=== PATIENT | male | born 2000 | race Caucasian/White ===

== ENCOUNTER 2019-05-18 22:41 | Emergency (ER) | payer BC ==
[2019-05-18 22:48] VITALS: RESP 18
--- NOTE | 2019-05-19 00:24 | ED ---
General Adult HPI - General Chief complaint: Shortness of Breath Stated complaint: ANIYAH Time Seen by Provider: 05/18/19 23:49 Source: patient Mode of arrival: ambulatory Limitations: no limitations - History of Present Illness Initial comments: Patient is a 18-year-old male presenting to the emergency department with a chief complaint of shortness of breath. Patient reports about 1.5 years ago he aspirated vomit after having drank. Patient reports ever since he has been complaining of intermittent breathing problems. Patient reports that he feels like there is "something in the left side of the chest." Patient reports he has been evaluated multiple times and had multiple CT scans that are unremarkable. Patient reports he went to his primary care who would not refer him to pulmonology. Patient reports he has developed increased shortness of breath over the past week. Patient reports in the past few days while he was at work he had a "burning sensation in his lungs". Patient reports it is very [employer] work. Patient reports he had multiple CTs performed at [facility] that were negative. Patient denies cough but does report nausea but no vomiting. Patient denies any night sweats fevers or chills. Patient denies hemoptysis. Patient denies chest pain. Patient does not have history of asthma. Patient reports he smokes about 2 cigarettes per week. - Related Data Home Medications Medication Instructions Recorded Confirmed Acetaminophen Tab [Tylenol Tab] 650 mg PO Q6H PRN 05/18/19 05/18/19 Ibuprofen [Motrin Ib] 400 mg PO Q6H PRN 05/18/19 05/18/19 Allergies Allergy/AdvReac Type Severity Reaction Status Date / Time amoxicillin Allergy Rash/Hives Verified 05/18/19 22:55 Review of Systems ROS Statement: Those systems with pertinent positive or pertinent negative responses have been documented in the HPI. ROS Other: All systems not noted in ROS Statement are negative. Past Medical History Past Medical History: No Reported History History of Any Multi-Drug Resistant Organisms: None Reported Past Surgical History: No Surgical Hx Reported, Cholecystectomy Additional Past Surgical History / Comment(s): right hand plates, Additional Past Anesthesia/Blood Transfusion Reaction / Comment(s): FIRTS ANESTHESIA Past Psychological History: ADD/ADHD Smoking Status: Current some day smoker Past Alcohol Use History: None Reported Past Drug Use History: None Reported General Exam Limitations: no limitations General appearance: alert, in no apparent distress Head exam: Present: atraumatic, normocephalic, normal inspection Eye exam: Present: normal appearance, PERRL, EOMI Pupils: Present: normal accommodation ENT exam: Present: normal exam, normal oropharynx, mucous membranes moist, TM's normal bilaterally, normal external ear exam Neck exam: Present: normal inspection, full ROM Respiratory exam: Present: normal lung sounds bilaterally. Absent: respiratory distress, wheezes, rales, rhonchi, stridor, chest wall tenderness, accessory muscle use, decreased breath sounds Cardiovascular Exam: Present: regular rate, normal rhythm, normal heart sounds Extremities exam: Present: normal inspection, full ROM Back exam: Present: normal inspection, full ROM Neurological exam: Present: alert, oriented X3 Psychiatric exam: Present: normal affect, normal mood Skin exam: Present: warm, intact, normal color Course Vital Signs 05/18/19 05/18/19 05/19/19 22:43 23:02 01:23 Temperature 99.1 F 98.8 F Pulse Rate 125 H 110 H Respiratory 18 18 18 Rate Blood Pressure 147/85 140/80 O2 Sat by Pulse 97 97 Oximetry Medical Decision Making - Medical Decision Making Patient is a 18-year-old male presenting to emergency Department with a chief complaint of shortness of breath. Patient had aspirated his vomit approximately 1.5 years ago and states that ever since he has developed breathing difficulties. Patient reports that he had multiple CTs performed at [facility] that were unremarkable. At this time patient feels like his chest is a "burning sensation" especially when he is at work. 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 His primary care would not give him a referral to [facility]. Physical examination with auscultation is unremarkable. Patient is only reporting pain with full inspiration and is otherwise not wh eezing. No increased work of breathing noted. Chest x-ray is unremarkable. I discussed with the patient that he would need to see a chiseler head for further workup. Patient has a red he had multiple CTs yielding unremarkable results showed no CT is warranted at this time. Patient does not have any other symptoms. Patient understands and is agreeable. Patient is ready to go home. Patient advised to follow-up with a [facility]is[facility] head. Strict return parameters were thoroughly discussed with patient was understanding and agreeable. Case discussed physician. Disposition Clinical Impression: Breathing difficult Disposition: HOME SELF-CARE Condition: Stable Instructions (If sedation given, give patient instructions): Aspiration Pneumonia (DC) Additional Instructions: Please follow up with the chis[facility] head. Please return to emergency department if symptoms worsen. Is patient prescribed a controlled substance at d/c from ED?: No Referrals: Yoseph Adames MD [Primary Care Provider] - 1-2 days Time of Disposition: 01:00
--- NOTE | 2019-05-19 00:39 | XR ---
EXAMINATION TYPE: XR chest 2V DATE OF EXAM: 05/19/2019 COMPARISON: NONE HISTORY: Short of breath TECHNIQUE: Frontal and lateral views of the chest are obtained. FINDINGS: Heart and mediastinum are normal. Lungs are clear. Diaphragm is normal. Bony thorax appear s normal. IMPRESSION: Normal chest
[2019-05-19 01:24] VITALS: BP 140/80; PULSE 110; TEMP 98.8
== END 2019-05-19 01:24 | disposition home or self-care (01) ==
LOC: EC 22:41
DX: R06.02 Shortness of breath (principal); R11.0 Nausea; R09.89 Other specified symptoms and signs involving the circulatory and respiratory systems; F17.210 Nicotine dependence, cigarettes, uncomplicated; Z88.0 Allergy status to penicillin
CPT/HCPCS: 71046; 99284